=== PATIENT | female | born 1960 | race Caucasian/White ===

== ENCOUNTER 2016-09-17 18:24 | Emergency (ER) | payer OTHER ==
[2016-09-17 19:14] VITALS: BP 124/80
--- NOTE | 2016-09-17 20:09 | RAD ---
Indication: Subluxed LEFT patella. Assess for fracture. Comparison: January 17, 2011 MRI and September 27, 2010 radiographs. Technique: AP, tunnel, lateral, sunrise views LEFT knee. Report: Normal articular alignment. Negative for patella teresita. Small suprapatellar joint effusion and suggestion of popliteal cyst. Negative for fracture. Negative for significant joint space narrowing. Unremarkable soft tissue contours. IMPRESSION: Negative for fracture. Small joint effusion and suggestion of popliteal cyst.
--- NOTE | 2016-09-17 21:15 | UC ---
Lower Extremity/Ankle HPI - HPI Summary HPI Summary: This is a 55 yo female with a h/o MAC and recent R meniscus surgery who presented with L knee pain. Patient states that she was moving her couch in preparation of vacuuming today when her knee hit the couch and she felt her knee cap track laterally and then reposition. She had immediate pain but stated it wasn't severe. She walked around the house and even took the dog for a walk. She went to a movie with her later and during the movie her pain became severe. She was unable to ambulate out of the theatre. - History of Current Complaint Chief Complaint: UCLowerExtremity Stated Complaint: KNEE INJURY Pain Intensity: 0 Pain Scale Used: 0-10 Numeric - Allergies/Home Medications Allergies/Adverse Reactions: Allergies Allergy/AdvReac Type Severity Reaction Status Date / Time No Known Allergies Allergy Unverified 09/17/16 19:14 PMH/Surg Hx/FS Hx/Imm Hx Endocrine History Of: Denies: Diabetes, Thyroid Disease, Hyperthyroidism, Hypothyroidism Cardiovascular History Of: Denies: Cardiac Disorders, Hypertension, Pacemaker/ICD Respiratory History Of: Reports: Pneumonia - h/o MAC, followed by pulmonology GI/ History Of: Denies: Renal Disease Neurological History Of: Denies: TIA, Seizures Psychological History Of: Denies: Anxiety, Depression Cancer History Of: Denies: Breast Cancer - Surgical History Surgical History: Yes Surgery Procedure, Year, and Place: lung surgery 2010, Bilateral knees 1976 - Family History Known Family History: Positive: Other - patient denies significant family history - Social History Alcohol Use: Weekly Alcohol Amount: 2-3 GLASSES WINE PER WEEK - USUALLY ON A SATURDAY NIGHT Substance Use Type: None Smoking Status (MU): Never Smoked Tobacco Review of Systems Constitutional: Negative Skin: Negative Eyes: Negative ENT: Negative Respiratory: Negative Cardiovascular: Negative Gastrointestinal: Negative Genitourinary: Negative Motor: Negative Neurovascular: Negative Musculoskeletal: Arthralgia Neurological: Negative Psychological: Negative All Other Systems Reviewed And Are Negative: Yes Physical Exam Triage Information Reviewed: Yes Appearance: Well-Appearing Vital Signs: Initial Vital Signs Temp 98.2 F 09/17/16 19:10 Pulse 74 09/17/16 19:10 Resp 16 09/17/16 19:10 BP 124/80 09/17/16 19:10 Pulse Ox 98 01/16/17 19:10 Vital Signs Reviewed: Yes Musculoskeletal: Positive: Other: - L knee effusion, TTP over patella, quad tendon, patellar tendon and medial joint line, reduced ROM secondary to pain. Diagnostics - Laboratory Diagnostic Studies Completed/Ordered: XR knee - effusion, but no fracture Lower Extremity Course/Dx - Course Course Of Treatment: Patient gives a history of lateral subluxation, no fracture seen on XR. Recommended immobilizing the knee in an extended position and limiting weight bearing with close orthopedic follow up. Recommend use of NSAIDs, elevation, compression and ice for symptomatic relief. Patient has an UMANG wrap and knee brace at home from recent meniscus surgery - Differential Dx/Diagnosis Differential Diagnosis/HQI/PQRI: Arthritis, Bursitis, Contusion, Dislocation, Fracture (Closed) Provider Diagnoses: 1. L lateral patellar subluxation Discharge - Discharge Plan Condition: Stable Disposition: HOME Patient Education Materials: Patellar Dislocation (ED) Referrals: Piedad Victoria MD [Primary Care Provider] - Thang Quintanilla DO [Doctor of Osteopathy] - Additional Instructions: Activity: Immobilize L knee and use crutches to limit weight bearing Instructions: 1. Please use your knee brace at home and sleep with it in place, use crutches to limit your weight bearing 2. Please call Dr Quintanilla tomorrow and request a follow up appointment within the next several days 3. Use Ibuprofen (600-800mg) three times daily 4. Keep the leg elevated 5. Apply ice 3-4 times daily
== END 2016-09-17 20:37 | disposition home or self-care (01) ==
LOC: UCEAST 18:24
DX: S83.012A Lateral subluxation of left patella, initial encounter (principal); X58.XXXA Exposure to other specified factors, initial encounter; Y93.89 Activity, other specified; Y92.9 Unspecified place or not applicable
CPT/HCPCS: 99211; G0463